=== PATIENT | male | born 1990 | race Caucasian/White ===

== ENCOUNTER 2022-09-25 21:09 | Emergency (ER) | payer MEDICAID, OTHER ==
[~2022-09-25] VITALS: Ht 180.3 cm; Wt 81.2 kg
[~2022-09-25 21:09] MED LIST: DICY20TA PO; ONDA4ODT8 PO
[2022-09-25 21:27] VITALS: BP 116/74
--- NOTE | 2022-09-25 21:30 | NUR ---
TO LOBBY A/W BED AMBULATORY
--- NOTE | 2022-09-25 23:30 | NUR ---
PATIENT TO BE SEEN BY ERMD, NO RESPONSE PATIENT LEFT WITHOUT BEING SEEN BY DR. PETERSON. NO FURTHER CARE PROVIDED FOR PATIENT.
--- NOTE | 2022-09-25 23:35 | NUR ---
CALLED FOR THR SECOND TIME , NO RESPONSE
--- NOTE | 2022-09-25 23:45 | NUR ---
CALLED FOR THR THIRD TIME NO RESPONSE
== END 2022-09-25 23:30 | disposition left against medical advice (07) ==
LOC: MED 21:09
DX: M79.641 Pain in right hand (principal); Z53.21 Procedure and treatment not carried out due to patient leaving prior to being seen by health care provider; W19.XXXA Unspecified fall, initial encounter; Y93.89 Activity, other specified; Y92.89 Other specified places as the place of occurrence of the external cause; Y99.8 Other external cause status
CPT/HCPCS: 73130; 73140; 99284

== ENCOUNTER 2023-02-14 01:37 | Emergency (ER) | payer MEDICAID ==
[~2023-02-14] VITALS: Ht 180.3 cm; Wt 88.9 kg
[2023-02-14 01:37] VITALS: BP 148/77
--- NOTE | 2023-02-14 01:40 | NUR ---
PT TO CHAIR WITH AURELIA
--- NOTE | 2023-02-14 01:56 | NUR ---
Dr. Waller examining patient.
[2023-02-14 02:19] VITALS: BP 148/77
--- NOTE | 2023-02-14 02:19 | NUR ---
Patient D/C to custody.
== END 2023-02-14 02:19 ==
LOC: MED 01:37
DX: S01.412A Laceration without foreign body of left cheek and temporomandibular area, initial encounter (principal); X58.XXXA Exposure to other specified factors, initial encounter; Y93.89 Activity, other specified; Y92.89 Other specified places as the place of occurrence of the external cause; Y99.8 Other external cause status
CPT/HCPCS: 90471; 90715; 99283